=== PATIENT | female | born 1985 | race Caucasian/White ===

== ENCOUNTER 2022-11-19 07:42 | Outpatient (CLI) | payer BC, SELFPAY ==
--- NOTE | 2022-11-19 08:00 | CRLHL7_ITS ---
For Patients: As a result of the Century Cures Act, medical imaging exams and procedure reports are released immediately into your electronic medical record. You may view this report before your referring provider. If you have questions, please contact your health care provider. Indication: ABNORMAL LIVER US Technique: Pre and post-contrast CT abdomen performed. 100 cc Omnipaque 350 intravenous contrast. Postcontrast images in the portal venous phase, arterial phase and 5 minutes delayed phase. Please note that all CT scans at this facility use dose modulation, iterative reconstruction, and/or weight-based dosing when appropriate to reduce radiation dose to as low as reasonably achievable. Comparison: MRI 05/15/2021, ultrasound 10/30/2022, CT 07/14/2020 Findings: Focal fat deposition is present within the liver adjacent to the falciform ligament. The gallbladder is absent. No suspicious intrahepatic mass. No biliary duct dilation. Lung bases are clear. No free air beneath the hemidiaphragm. Kidneys and adrenal glands are normal. Normal spleen and pancreas. No hiatal hernia. No adenopathy. No fracture. Impression: No suspicious hepatic mass. Incidental focal fat deposition within the liver adjacent to the falciform ligament. Please note that all CT scans at this facility use dose modulation, iterative reconstruction, and/or weight-based dosing when appropriate to reduce radiation dose to as low as reasonably achievable. Dictated by Salomon Youngblood MD @ 11/19/2022 10:19:19 AM (Electronically Signed)
== END 2022-11-19 07:43 | disposition home or self-care (01) ==
LOC: CT 07:44
PROVIDERS: PCP Family Medicine; Visit Provider Internal Medicine
DX: R93.2 Abnormal findings on diagnostic imaging of liver and biliary tract (principal)
CPT/HCPCS: 74178; Q9967

== ENCOUNTER 2023-02-23 13:04 | Emergency (ER) | payer BC, SELFPAY ==
[2023-02-23] VITALS (27 sets, daily range): BP systolic 124–139; BP diastolic 83–93; PULSE 98–124; RESP 16–20; TEMP 36.5; O2SAT 96–100; BMI 29.9
[2023-02-23 13:31] LABS: Lactate* 2.5 mmol/L (0.5-1.9)
[2023-02-23 13:33] LABS: Basophils Percent Auto 0.1 % (0.0-3.0); Eosinophils Percent Auto 0.9 % (0.0-7.0); Hematocrit 42.3 % (33.0-51.0); Hemoglobin* 14.1 gm/dL (12.0-16.0); Immature Granulocytes Pct Auto 0.4 %; Lymphocytes Percent Auto 8.8 % (20-44); Mean Corpuscular HGB Conc 33 gm/dL (32-36); Mean Corpuscular Hemoglobin 27 pg (26-34); Mean Corpuscular Volume 80 fL (80-100); Neutrophils Percent Auto 86.8 % (42.0-72.0); Platelet Count* 553 K/uL (140-440); Red Blood Count 5.27 m/uL (4.00-5.20); Slide Review Reflex No; White Blood Count* 13.81 K/uL (4.50-11.00)
--- NOTE | 2023-02-23 13:47 | CRLHL7_ITS ---
For Patients: As a result of the 21st Century Cures Act, medical imaging exams and procedure reports are released immediately into your electronic medical record. You may view this report before your referring provider. If you have questions, please contact your health care provider. INDICATION: Abdominal pain, hematochezia, history of ulcerative colitis. TECHNIQUE: CT of the abdomen and pelvis acquired with 85 cc Isovue 370 IV contrast. Coronal and sagittal reconstructions. COMPARISON: CT of the abdomen 11/19/2022. FINDINGS: Liver: The liver is enlarged measuring 19.7 cm in length. Diffuse hepatic steatosis. Focal fatty infiltration adjacent to the falciform ligament. Hepatic and portal veins are patent. Gallbladder and bile ducts: Cholecystectomy. No biliary dilation. Spleen: Unremarkable. Pancreas: Unremarkable. Adrenal glands: Unremarkable. Kidneys, Ureters, and Bladder: Symmetric enhancement. No hydronephrosis or ureteral dilation. No obstructing urinary calculi identified. Underdistended urinary bladder. Reproductive structures: Uterus is unremarkable. No adnexal mass. GI tract/Peritoneum: No small bowel dilation. There is diffuse wall thickening, mucosal hyperenhancement, and pericolonic vascular engorgement extending from the cecum to rectum compatible with a nonspecific proctocolitis. Fluid throughout the colon which can be seen with diarrhea. Negative appendix. No intraperitoneal free air or fluid. Vasculature: Abdominal aorta is normal in caliber. Mesenteric arteries are patent. Lymph nodes: Multiple small pericolonic lymph nodes are likely reactive. No lymphadenopathy by size criteria. Abdominal wall: Unremarkable. Bones: Unremarkable. Lower chest: Calcified granuloma right middle lobe. The lung bases are otherwise clear. IMPRESSION: 1. Diffuse proctocolitis extending from the cecum to rectum likely related to patient`s known ulcerative colitis. 2. Hepatomegaly with diffuse hepatic steatosis. Please note that all CT scans at this facility use dose modulation, iterative reconstruction, and/or weight-based dosing when appropriate to reduce radiation dose to as low as reasonably achievable. Dictated by Madyson Bledsoe MD @ 02/23/2023 3:18:47 PM (Electronically Signed)
[2023-02-23] MEDS: 0.9 % SODIUM CHLORIDE 1000 ml 1,000 ML IV (13:56)
[2023-02-23] MEDS: METHYLPREDNISOLONE SOD SUCC 62.5 MG/ML (125) 125 MG IVP (13:57)
--- NOTE | 2023-02-23 13:58 | ED.GENADULT ---
HPI - General Adult General Date Seen: 02/23/23 Chief complaint: Abdominal Pain Stated complaint: Ulcerative colitis not responding to steroids Time Seen by Provider: 02/23/23 13:31 History of Present Illness HPI narrative: This is a pleasant 37-year-old female with a history of ulcerative colitis, some food allergies, mild asthma, who presents to the ER today with her mother for evaluation of abdominal pain, nausea, and hematochezia. She has a long history of ulcerative colitis and follows with [place] [facility] with a provider at the [facility] for that. She has been on medications for quite some time. She does experience is quite a few flares of UC and has required bursts of prednisone about her a 3 months or so for the past year or 2. She had another flare December. After getting insurance authorization she was started on a new immunomodulatory medication in early January. Despite the new medication, she began to experience symptoms of a flare about 2 and half weeks ago. Initial symptoms were an increase in watery diarrhea. About a week or so ago she also developed decreasing appetite and increasing satiety. For the past week or so she has also been nauseous. For the past few days she has been vomiting at least once every morning. Stools have been ongoing. Every hour at least, sometimes every 20 minutes. For the 1st week or 10 days stools are predominantly watery but for the past week or so they been fairly bloody. She thinks she is passing a few tsp of blood, bright red blood, no clots, no maroon blood, with each stool. No black stools. She has not had any fevers. She is having increasing abdominal pain. She has been in contact with her providers at [facility]. They started her on oral burst of prednisone a couple of days ago and did an outpatient C diff test that was negative in clinic on . Yesterday after a phone conversation she was told that if she is not ?at least 50% better? by today that she come to the hospital to be admitted for IV steroids. She is not doing any better today compared to yesterday. She is feeling weak. She notes that her heart rate is up. She has not had any fevers. No recent antibiotics. No other recent travel or unusual food intake. She has a history of mild asthma but is not having any asthma symptoms or any trouble breathing today or lately. She is not on any anticoagulants. Related Data Home Medications Medication Instructions Recorded Confirmed albuterol sulfate 90 mcg/actuation inhalation 02/23/23 aerosol inhaler drospirenone 3 mg-ethinyl 1 tab PO DAILY 02/23/23 02/23/23 estradiol 0.02 mg tablet prednisone 5 mg tablet PO 02/23/23 Allergies Allergy/AdvReac Type Severity Reaction Status Date / Time adhesive Allergy Unknown Verified 02/23/23 13:13 cephalexin [From Keflex] Allergy Unknown Verified 02/23/23 13:13 Latex, Natural Rubber Allergy Unknown Verified 02/23/23 13:13 [facility] Social History Smoking Status: Never smoker How often do you have a drink containing alcohol: never How often do you have six or more drinks on one occasion: Never AUDIT-C Alcohol total score: 0 Non-prescribed substance use: denies use Exam Narrative: Exam Narrative: Constitutional: Appears well-developed and well-nourished. Alert. Conversant. Looks tired but not overtly shocky. HENT: Head: Atraumatic. Nose: Nose normal. Mouth/Throat: Oral mucosa is clear and moist. no trismus. Pharynx normal. Tonsils symmetric. No tonsillar enlargement, erythema, or exudate. Eyes: Conjunctivae normal, pink. EOM normal. Pupils equal, round, and reactive to light. No scleral icterus. Neck: Normal range of motion. Neck supple. No tracheal deviation present. Cardiovascular: Normal rate, regular rhythm. No gallop. No friction rub. No murmur heard. Symmetric radial artery pulses Pulmonary/Chest: Effort normal. No stridor. No respiratory distress. No wheezes. No rales. No rhonchi . No tenderness. Abdominal: Soft. Bowel sounds normal. No distension. No mass. LLQ> LUQ and suprapubic tenderness. No rebound. No guarding. Musculoskeletal: RUE: Normal range of motion. No tenderness. No deformity LUE: Normal range of motion. No tenderness. No deformity RLE: Normal range of motion. No edema. No tenderness. No deformity LLE: Normal range of motion. No edema. No tenderness. No deformity Neurological: Alert and oriented to person, place, and time. Normal strength. CN II-VII intact. No sensory deficit. GCS eye subscore is 4. GCS verbal subscore is 5. GCS motor subscore is 6. Normal coordination Skin: Skin is warm and dry. No rash noted. No pallor or mottling. Normal capillary refill. Psychiatric: Normal mood. Normal affect. Const: Vital Signs, click to edit/add: Vital Signs - 24 hr 02/23/23 13:10 02/23/23 13:31 02/23/23 13:45 Temperature 97.7 F Pulse Rate 109 H 110 H Pulse Rate [Pulse Oximeter] 124 H Respiratory Rate 20 Blood Pressure Blood Pressure [Ri ght Upper Arm] 132/84 Pulse Oximetry 97 97 98 Oxygen Delivery Me thod Room Air 02/23/23 14:00 02/23/23 14:15 02/23/23 14:22 Temperature Pulse Rate 104 H 106 H 103 H Pulse Rate [Pulse Oximeter] Respiratory Rate Blood Pressure 132/83 Blood Pressure [Ri ght Upper Arm] Pulse Oximetry 97 97 98 Oxygen Delivery Me thod 02/23/23 14:30 02/23/23 14:48 02/23/23 14:49 Temperature Pulse Rate 99 102 H 104 H Pulse Rate [Pulse Oximeter] Respiratory Rate Blood Pressure 134/87 Blood Pressure [Ri ght Upper Arm] Pulse Oximetry 97 99 97 Oxygen Delivery Me thod 02/23/23 15:00 02/23/23 15:01 02/23/23 15:15 Temperature Pulse Rate 98 100 99 Pulse Rate [Pulse Oximeter] Respiratory Rate Blood Pressure 124/88 Blood Pressure [Ri ght Upper Arm] Pulse Oximetry 98 98 100 Oxygen Delivery Me thod 02/23/23 15:30 02/23/23 15:45 02/23/23 16:00 Temperature Pulse Rate 99 99 100 Pulse Rate [Pulse Oximeter] Respiratory Rate Blood Pressure Blood Pressure [Ri ght Upper Arm] Pulse Oximetry 100 97 97 Oxygen Delivery Me thod 02/23/23 16:01 02/23/23 16:15 02/23/23 16:30 Temperature Pulse Rate 99 102 H 107 H Pulse Rate [Pulse Oximeter] Respiratory Rate Blood Pressure 134/84 Blood Pressure [Ri ght Upper Arm] Pulse Oximetry 97 97 98 Oxygen Delivery Me thod Course Reevaluation(s) Reevaluation #1: Discussed with [facility], Dr. Marcum at about 14 15. He recommends starting IV steroids. After 1st dose to be Solu-Medrol 20 mg q.8 hours IV. He would recommend transfer to a hospital where she can be seen by GI and/or colorectal surgery. At this point no need for emergent transfer or emergent surgery but patient would strongly benefit from being at a GI capable hospital. There is no GI here in [place]. He would recommend transfer to any of the hospitals in the [facility] such as the [facility], [facility], [facility], or [facility] available. He advises against transfer to wound wounds because colorectal is not available at that facility. I called through the to the line access center. They are placing the patient on the wait list. She is #2 on the [facility] wait list. Reevaluation #2: I evaluated the patient CT. By my read there is evidence for colitis but no definite perforation. Awaiting formal read. Updated patient and mother. At this point hemoglobin is stable. No need for transfusion for emergent GI intervention to stop excessive bleeding. She is on the wait list for [facility]. Vital Signs Vital signs: Initial Vital Signs Temperature 97.7 F 02/23/23 13:10 Temperature Source Oral 02/23/23 13:10 Pulse Rate 124 H 02/23/23 13:10 Respiratory Rate 20 02/23/23 13:10 Blood Pressure 132/84 02/23/23 13:10 Blood Pressure Mean 100 02/23/23 13:10 Blood Pressure Position Sitting 02/23/23 13:10 Pulse Oximetry 97 02/23/23 13:10 Oxygen Delivery Method Room Air 02/23/23 13:10 Vital Signs Temperature 97.7 F 02/23/23 13:10 Pulse Rate 124 H 02/23/23 13:10 Respiratory Rate 20 02/23/23 13:10 Blood Pressure 132/84 02/23/23 13:10 Pulse Oximetry 97 02/23/23 13:10 Oxygen Delivery Method Room Air 02/23/23 13:10 Temperature 97.7 F 02/23/23 13:10 Pulse Rate 107 H 02/23/23 16:30 Respiratory Rate 20 02/23/23 13:10 Blood Pressure 134/84 02/23/23 16:01 Pulse Oximetry 98 02/23/23 16:30 Oxygen Delivery Method Room Air 02/23/23 13:10 Medications Administered Medications: Discontinued Medications Generic Name Dose Route Start Last Admin Trade Name Freq PRN Reason Stop Dose Admin Sodium Chloride 1,000 mls @ 1,000 mls/hr 02/23/23 14:00 02/23/23 15:31 0.9 % Sodium Chloride 1000 Ml IV 02/23/23 14:59 Infused .Q1H LUPE Infusion Methylprednisolone Sodium Succinate 125 mg 02/23/23 13:48 02/23/23 13:57 Methylprednisolone Sod Succ 62.5 Mg/Ml (125) IVP 02/23/23 13:49 125 mg ONCE ONE Administration Medical Decision Making MDM Narrative Medical decision making narrative: 37-year-old female with a history of ulcerative colitis presenting to the ER today with symptoms likely related to UC flare progressively worsening for the past 2-2 and half weeks despite outpatient treatment with her normal use the medication and initiation of an outpatient oral steroid flare in conjunction with her primary gastroenterology office, [facility], and her primary GI doctor, Dr. Martinez. She has been having frequent loose and bloody stools for the past several days and worsening pain, nausea, anorexia so was sent here to the ER today for evaluation of and because she needs hospitalization for treatment with intravenous steroids to help bring her UC under control. Workup here in the ER shows leukocytosis which would be expected from UC flare. Fortunately hemoglobin is stable and she does not require emergent transfusion. Blood pressure is stable. Pulse was mildly elevated but improved after IV fluids. Kidney function and electrolytes are normal save for slightly low bicarb which is probably related to dehydration. IV fluids administered. CT scan confirms proctocolitis but no evidence for any surgical emergency such as perforation, abscess, fistula, or megacolon. Patient has already had outpatient C diff testing through her GI office and was negative for C diff 2 days ago. We made consultation over the phone with [facility], Dr. Marcum. He agrees with the plan to admit for IV steroids. First dose of steroids here in the ER was 125 mg IV Solu-Medrol. He recommends 20 mg q.8 hours thereafter. He recommends transfer to a hospital with capability for GI consultation and also potential colorectal consultation. This would be 1 of the hospitals that [facility] covers in the [facility] such as the [facility], [facility], [facility], etc. Dr. Marcum and advises against transfer to [facility] since colorectal is not available at that facility. Patient was placed onto a wait list with the a line access center and ultimately accepted by the hospitalist service at [facility]. patient and her mother are agreeable. Lab Data Labs: Lab Results 02/23/23 02/23/23 Range/Units 13:25 14:15 WBC 13.81 H (4.50-11.00) K/uL RBC 5.27 H (4.00-5.20) m/uL Hgb 14.1 (12.0-16.0) gm/dL Hct 42.3 (33.0-51.0) % MCV 80 (80-100) fL MCH 27 (26-34) pg MCHC 33 (32-36) gm/dL RDW Coeff of Roque 14.0 (11.5-15.5) % Plt Count 553 H (140-440) K/uL Neut % (Auto) 86.8 H (42.0-72.0) % Lymph % (Auto) 8.8 L (20-44) % Kerr % (Auto) 3.0 (0.0-11.0) % Eos % (Auto) 0.9 (0.0-7.0) % Baso % (Auto) 0.1 (0.0-3.0) % Neut # (Auto) 12.00 H (1.7-7.0) K/uL Lymph # (Auto) 1.20 (0.90-2.90) K/uL Kerr # (Auto) 0.40 (0.00-0.90) K/UL Eos # (Auto) 0.10 (0.00-0.50) K/uL Baso # (Auto) 0.00 (0.00-0.30) K/uL Abs Immat Gran (auto) 0.10 (0.00-0.30) K/uL Imm/Tot Granulo (auto) 0.4 % Sodium 136 (135-149) mmol/L Potassium 3.6 (3.6-5.1) mmol/L Chloride 106 (96-114) mmol/L Carbon Dioxide 18 L (20-32) mmol/L Anion Gap 12 (7-15) mEq/L BUN 16 (5-24) mg/dL Creatinine 0.9 (0.5-1.5) mg/dL Estimated Creat Clear 75.34 Estimated GFR 86 ml/min Glucose 144 H (60-115) mg/dL Lactate 2.5 H (0.5-1.9) mmol/L Calcium 8.9 (8.4-10.6) mg/dL Total Bilirubin 0.3 (0.1-1.5) mg/dL AST 31 (12-35) U/L ALT 35 (4-35) U/L Alkaline Phosphatase 147 (40-150) U/L Total Protein 8.0 (6.0-8.3) g/dL Albumin 4.2 (3.3-5.0) g/dL Urine Color Sravani A (Yellow) Urine Appearance Cloudy A (Clear) Urine pH 5.5 (5.0-8.5) Ur Specific [place] >= 1.030 (1.000-1.030) Urine Protein 2+ A (Negative) Urine Glucose (UA) Negative (Negative) Urine Ketones Trace A (Negative) Urine Blood Trace-intact A (Negative) Urine Nitrite Negative (Negative) Urine Bilirubin 1+ A (Negative) Urine Urobilinogen 0.2 (0.2-1.0) Ur Leukocyte Esterase Trace A (Negative) Urine RBC 10-25 A (0-2) Urine WBC 10-25 A (0-5) Ur Squamous Epith Cells Moderate A (None-Few) Urine Bacteria Many A (None) Urine HCG, Qual Negative (Negative) Imaging Data CT scan - abdomen: Attestation: I have reviewed the pertinent imaging results. Radiologist's impression: IMPRESSION: 1. Diffuse proctocolitis extending from the cecum to rectum likely related to patient`s known ulcerative colitis. 2. Hepatomegaly with diffuse hepatic steatosis. Discharge Plan Discharge Clinical Impression: Acute lower gastrointestinal bleeding, Ulcerative colitis Patient Disposition: Xfer Other Prescriptions: No Action prednisone 5 mg tablet PO albuterol sulfate 90 mcg/actuation HFA aerosol inhaler inhalation drospirenone-ethinyl estradiol 3-0.02 mg tablet 1 tab PO DAILY Stand Alone Forms: [email or web address] Info Instructions
[2023-02-23 14:00] LABS: Albumin* 4.2 g/dL (3.3-5.0); Chloride* 106 mmol/L (96-114); Sodium* 136 mmol/L (135-149)
[2023-02-23 14:01] LABS: Potassium* 3.6 mmol/L (3.6-5.1)
[2023-02-23 14:03] LABS: Alanine Aminotransferase* 35 U/L (4-35); Alkaline Phosphatase* 147 U/L (40-150); Anion Gap 12 mEq/L (7-15); Aspartate Amino Transferase* 31 U/L (12-35); Bilirubin Total* 0.3 mg/dL (0.1-1.5); Blood Urea Nitrogen* 16 mg/dL (5-24); Carbon Dioxide* 18 mmol/L (20-32); Creatinine* 0.9 mg/dL (0.5-1.5); Est. Creatinine Clearance* 75.34; Estimated Glomerular Filt Rate 86 ml/min
[2023-02-23 14:04] LABS: Calcium* 8.9 mg/dL (8.4-10.6); Glucose* 144 mg/dL (60-115)
[2023-02-23 14:25] LABS: Appearance Urine Cloudy (Clear); Bilirubin Urine 1+ (Negative); Blood Urine Trace-intact (Negative); Color Urine Amber (Yellow); Glucose Urine Negative (Negative); Ketones Urine Trace (Negative); Leukocyte Esterase Urine Trace (Negative); Nitrite Urine Negative (Negative); Protein Urine 2+ (Negative); Specific Gravity Urine >= 1.030 (1.000-1.030); Urobilinogen Urine 0.2 (0.2-1.0); pH Urine 5.5 (5.0-8.5)
[2023-02-23 14:29] LABS: Ur HCG Qualitative* Negative (Negative)
[2023-02-23 14:35] LABS: Bacteria Urine Many; Squamous Epithelial Cell Urine Moderate (None-Few)
[2023-02-23] MEDS: METHYLPREDNISOLONE SOD SUCC 40 MG/ML 20 MG IVP (21:02)
--- NOTE | 2023-02-23 23:30 | ED.NURSE ---
EMS arrived. Report given, pt care given to EMS.
== END 2023-02-23 23:34 | disposition other institution (70) ==
PROVIDERS: Emergency Provider Emergency Medicine; PCP Family Medicine
DX: K92.2 Gastrointestinal hemorrhage, unspecified (principal); K51.90 Ulcerative colitis, unspecified, without complications
CPT/HCPCS: 36415; 74177; 80053; 81001; 81025; 83605; 85025; 87086; 96374; 96376; 99284; 99285; J2920; J2930; J7030; Q9967

== ENCOUNTER 2023-02-23 23:27 | Outpatient (CLI) | payer BC, SELFPAY | END 2023-02-23 23:28 | disposition home or self-care (01) | LOC: AMB 02-27 10:43 | PROVIDERS: PCP Family Medicine; Visit Provider Family Medicine | DX: K51.80 Other ulcerative colitis without complications (principal) | CPT/HCPCS: A0425; A0428 ==

== ENCOUNTER 2024-11-12 12:47 | Outpatient (CLI) | payer BC, SELFPAY ==
--- NOTE | 2024-11-12 13:00 | CRLHL7_ITS ---
For Patients: As a result of the Century Cures Act, medical imaging exams and procedure reports are released immediately into your electronic medical record. You may view this report before your referring provider. If you have questions, please contact your health care provider. DXA BONE MINERAL DENSITY STUDY Current height (in): 64. Weight (lb): 209 Menopause age: not listed. Ethnicity: White. 1. Have you had a previous hip or vertebral fracture? No. 2. Have you had any fractures during your adult life which did not result from significant trauma (e.g., auto accident)? No. 3. Did either of your parents have a hip fracture? No. 4. Do you smoke? No. 5. Have you ever taken Glucocorticoids? Yes. 6. Do you have rheumatoid arthritis? No. 7. Do you have secondary osteoporosis? No. 8. Do you drink 3 or more alcoholic drinks per day? No. 9. Are you being treated for osteoporosis? No. 10. Have you ever taken any of the following medications: Actonel, Evista, Fosamax, Miacalcin, Reclast, Boniva, Forteo, HRT (i.e. estrogen/hormone therapy), Protelos, Prolia, Vitamin D, Calcium, other ??? please specify. ANSWER: Yes, Vitamin D, Calcium and Rinvoq. 11. Do you have any of the following medical conditions: Anorexia or bulimia, asthma or emphysema, end stage renal disease, hyperparathyroidism, any seizure disorders, cancer, inflammatory bowel diseases, hysterectomy, other ??? please specify. ANSWER: Yes, Asthma or Emphysema and Ulcerative Colitis. 12. What was your maximum height (inches)? 67. 13. Do you perform weight bearing exercise regularly? Yes. 14. Do you regularly consume dairy products? Yes. 15. Do you drink caffeinated beverages? Yes. 16. At what age did your period start? Not answered. 17. Are you premenopausal? No. 18. How many full term pregnancies have you had? Not answered. 19. Have you ever missed your period for more than 6 months in a row (not including or menopause)? No. TECHNIQUE: Bone mineral density study was performed using the enercast. FINDINGS: The results of the study expressed as bone mineral density (BMD) are as follows: Lumbar spine L1 to L4: BMD: 1.067 g/cm2. Z-score: 0.3. Neck Left: BMD: 0.905 g/cm2. Z-score: 0.7. Right: BMD: 0.797 g/cm2. Z-score: -0.3. Total Left: BMD: 1.144 g/cm2. Z-score: 1.8. Right: BMD: 0.974 g/cm2. Z-score: 0.4. IMPRESSION: Normal bone density. FRAX 10-year Fracture Risk Major Osteoporotic Fracture: 2.6 percent Hip Fracture: 0.1 percent Reported Risk Factors: [place] () Neck BMD=0.797, BMI=35.9, glucocorticoids. Salomon Youngblood M.D. [email or web address] DW/Dictated by: Salomon Youngblood MD @ 11/13/2024 10:28:00 AM (Electronically Signed)
== END 2024-11-12 12:48 | disposition home or self-care (01) ==
LOC: RAD 12:48
PROVIDERS: PCP Family Medicine; Visit Provider Internal Medicine
DX: K51.011 Ulcerative (chronic) pancolitis with rectal bleeding (principal)
CPT/HCPCS: 77080

== ENCOUNTER 2025-02-10 13:21 | Outpatient (CLI) | payer BC, SELFPAY ==
--- NOTE | 2025-02-10 13:45 | CRLHL7_ITS ---
For Patients: As a result of the Century Cures Act, medical imaging exams and procedure reports are released immediately into your electronic medical record. You may view this report before your referring provider. If you have questions, please contact your health care provider. INDICATION: pain of left lower extremity COMPARISON: none TECHNIQUE: A compression venous ultrasound exam was performed of both lower extremities using maki scale imaging, color Doppler and spectral Doppler analysis. FINDINGS: Sonographic imaging of the lower extremities demonstrates normal compressibility and color Doppler venous blood flow within the common femoral, deep femoral, and proximal greater saphenous veins. Within the thighs the femoral veins are patent and compressible. At a lower level the popliteal and posterior tibial veins also show normal compressibility and color Doppler venous blood flow. IMPRESSION: Normal venous ultrasound exam. No evidence of deep vein thrombosis within either the left or right lower extremity. Dictated by Salomon Youngblood MD @ 02/10/2025 3:30:58 PM (Electronically Signed)
== END 2025-02-10 13:22 | disposition home or self-care (01) ==
LOC: US 13:23
PROVIDERS: PCP Family Medicine; Visit Provider Internal Medicine
DX: M79.605 Pain in left leg (principal)
CPT/HCPCS: 93970